=== PATIENT | female | born 1990 | race Caucasian/White ===

== ENCOUNTER 2016-05-31 04:34 | Emergency (ER) | payer OTHER ==
[~2016-05-31] VITALS: Ht 160 cm; Wt 72.4 kg
[~2016-05-31 04:34] MED LIST: IBUPROFEN800 MG PO; IRON325 M1 PO; LEVOTHYROXINE112 MCG PO; Motrin PO; OXYCODONE-APAP1 EACH PO; PRENATAL TABLE1 EAC3 PO; Percocet 5/325,Endoc PO
[2016-05-31 07:01] LABS: HEMATOCRIT 35.2 % (36.0-46.0); MCH 27.1 PG (29.0-34.0); MCHC 33.5 G/DL (30.0-36.0); MCV 80.9 FL (83-99); MEAN PLAT.VOLUME 9.2 uM^3 (9.5-12.4); PLATELET COUNT 223 K/uL (156-360); RBC DIS.WIDTH-CV 14.1 % (11.8-14.6); RBC DIS.WIDTH-SD 40.5 % (39-53); RED BLOOD COUNT 4.35 M/uL (3.80-5.20); WHITE BLOOD COUNT 6.2 K/uL (4.1-10.2)
[2016-05-31 07:24] LABS: ANION GAP 8 MEQ/L (2-14); CHLORIDE 107 MEQ/L (99-109); POTASSIUM 3.8 MEQ/L (3.7-5.4); SAMPLE HEMOLYSIS CHECK 0; SAMPLE ICTERIC CHECK 0; SAMPLE LIPEMIA CHECK 0; SODIUM 140 MEQ/L (136-147)
[2016-05-31 07:29] LABS: GFR ESTIMATE (CALCULATED) > 59 mL/min/; GLUCOSE 94 mg/dL (70-99); UREA NITROGEN (BUN) 13 mg/dL (9-23)
[2016-05-31 07:33] LABS: ADD MIUA? YES; BILIRUBIN NEGATIVE; BLOOD NEGATIVE; COLOR YELLOW ((YELLOW)); GLUCOSE (STRIP) NEGATIVE; KETONES NEGATIVE; LEUKOCYTES NEGATIVE; NITRITE NEGATIVE; PROTEIN (STRIP) TRACE; SPECIFIC GRAVITY 1.029 (1.000-1.030); UROBILINOGEN 0.2 MG/DL (0.2-1.0)
[2016-05-31 07:40] LABS: INTERNAL CONTROL VALID? YES
[2016-05-31 08:15] LABS: EPITHELIAL CELLS 2+; MUCUS 2+; RED BLOOD CELLS RARE /HPF (0-5); WHITE BLOOD CELLS 0-5 /HPF (0-5)
[2016-05-31 08:16] LABS: BACTERIA 1+; CASTS NONE SEEN /LPF; CRYSTALS NONE SEEN; UCUL ADDED? NO
[2016-05-31] MEDS ORDERED: PERCOCET 5/31 TABLET PO (12:29)
[2016-05-31 12:46] VITALS: BP 114/57
== END 2016-05-31 13:09 | disposition home or self-care (01) ==
LOC: EME 04:34
PROVIDERS: Emergency Medicine
DX: K62.89 Other specified diseases of anus and rectum (principal); E03.9 Hypothyroidism, unspecified
CPT/HCPCS: 72193; 80048; 81003; 84703; 85027; 99281; 99285; J1170; J2405; J7030